=== PATIENT | female | born 1985 | race Caucasian/White ===

== ENCOUNTER 2019-04-11 06:28 | Day surgery (SDC) | payer OTHER, MEDICAID ==
[~2019-04-11] VITALS: Ht 142.2 cm; Wt 63.2 kg
[~2019-04-11 06:28] MED LIST: CETI-193 PO; DIAZ2 PO; DIAZ5 PO; DOCU-275 PO; FLUT16H NASAL; NORE-136 PO; OLAN5TAB2 PO; PSYL0.5210 PO; RINGERS SOLUTION,LACTATED 1,000 ML IV ONE
[2019-04-11] MEDS ORDERED: PROPOFOL 1% 20 ML VIAL IVP ONE (06:29)
[2019-04-11] MEDS ORDERED: LIDOCAINE/PF 2% 5 ML SYRINGE IVP ONE (06:29)
[2019-04-11] MEDS ORDERED: RINGERS SOLUTION,LACTATED 1,000 ML IV ONE (06:30)
[2019-04-11] MEDS ORDERED: SODIUM CHLORIDE 0.9% 100 ML ONE (07:35)
[2019-04-11] MEDS ORDERED: CLINDAMYCIN PHOS 150 MG/ML 4 ML VIAL ONE (07:59)
[2019-04-11] MEDS ORDERED: MIDAZOLAM HCL 5 MG/ML VIAL ONE (09:04)
[2019-04-11] MEDS ORDERED: KETAMINE HCL 50 MG/ML 10 ML VIAL IVP ONE (12:00)
[2019-04-11] MEDS ORDERED: FentaNYL CITRATE-PF 100 MCG/2 ML VIAL IVP ONE (12:00)
[2019-04-11 12:30] LABS: BASOPHILS % (AUTO) 0.5 % (0.0-2.0); EOSINOPHILS % (AUTO) 0.1 % (1.0-6.0); HEMATOCRIT 45.7 % (36-46); HEMOGLOBIN 15.1 g/dL (12.0-16.0); LYMPHOCYTES % (AUTO) 16.8 % (22.0-44.0); MEAN CORPUSCULAR HEMOGLOBIN 31.2 pg (26.0-34.0); MEAN CORPUSCULAR HGB CONC 33.2 G/dL (31.0-37.0); MEAN CORPUSCULAR VOLUME 94 fL (80-100); MONOCYTES # (AUTO) 0.4 K/uL (0.1-1.0); MONOCYTES % (AUTO) 2.9 % (2.0-9.0); NEUTROPHILS # (AUTO) 9.7 K/uL (1.8-7.7); NEUTROPHILS % (AUTO) 79.7 % (40.0-70.0); PLATELET COUNT (AUTO) 284 K/uL (150-450); RED BLOOD CELL COUNT(AUTO) 4.85 MIL/uL (4.00-5.20); RED CELL DISTRIBUTION WIDTH 13.4 % (11.5-14.5)
[2019-04-11 12:40] LABS: ANION GAP 5 mmol/L (8-16); CALCIUM, TOTAL 8.8 mg/dL (8.8-10.5); CARBON DIOXIDE 28 mmol/L (22-29); CHLORIDE 110 mmol/L (98-107); CREATININE 0.85 mg/dL (0.60-1.30); GLOMERULAR FILTR. RATE CALC > 60 mL/min (>60); GLUCOSE,RANDOM 105 mg/dL (70-110); POTASSIUM 4.4 mmol/L (3.5-5.1); SODIUM SERUM 143 mmol/L (136-145); UREA NITROGEN, BLOOD 9 mg/dL (7-18)
[2019-04-11 12:44] LABS: PROTHROMBIN TIME 10.4 SEC (9.4-11.6)
[2019-04-11 12:46] LABS: ALANINE AMINOTRANSFERASE 30 U/L (12-78); ALBUMIN 3.5 g/dL (3.4-5.0); ALKALINE PHOSPHATASE 89 U/L (46-116); ASPARTATE AMINOTRANSFERASE 21 U/L (15-37); BILIRUBIN,TOTAL 0.3 mg/dL (0.1-1.0); TOTAL PROTEIN, SERUM 8.2 g/dL (6.4-8.2)
== END 2019-04-11 13:00 | disposition home or self-care (01) ==
LOC: SURGERY 06:28
PROVIDERS: ATTEND Dentist General Practice
DX: K02.9 Dental caries, unspecified (principal); K05.6 Periodontal disease, unspecified; F41.9 Anxiety disorder, unspecified; Z79.899 Other long term (current) drug therapy; Z88.1 Allergy status to other antibiotic agents; Z88.0 Allergy status to penicillin; Z88.8 Allergy status to other drugs, medicaments and biological substances; Z79.01 Long term (current) use of anticoagulants
CPT/HCPCS: 36415; 41899; 71045; 80053; 85025; 85610; 85730; 93005; J2250; J2704; J3010; J3490 ×3; J7050; J7120

== ENCOUNTER → 2020-05-28 | Day surgery (SDC) | payer OTHER, MEDICAID ==
[~2020-05-28] VITALS: Ht 147.3 cm; Wt 63.6 kg
[~2020-05-28] MED LIST changes: +CLINDAMYCIN PHOS 150 MG/ML 4 ML VIAL ONE; +DEXAMETHASONE SOD PHOS 4 MG/ML VIAL IVP ONE; -DIAZ5 PO; +DIAZ5TAB5 PO; +GLYCOPYRROLATE 0.2 MG/ML VIAL IM ONE; +LIDOCAINE/PF 2% 5 ML SYRINGE IVP ONE; +MIDAZOLAM HCL 5 MG/ML VIAL ONE; +NEOSTIGMINE METHYLSULFATE 1 MG/ML 10 ML VIAL IVP ONE; +ONDANSETRON HCL 4 MG/2 ML VIAL IVP ONE; +PROPOFOL 1% 20 ML VIAL IVP ONE; +ROCURONIUM BROMIDE 10 MG/ML 5 ML VIAL IV ONE; +SODIUM CHLORIDE 0.9% 0 ML ONE; +VANCOMYCIN HCL 1 GM/VIAL ONE
[2020-05-28 07:44] LABS: COVID AG,FIA SOURCE NASOPHARYNGEAL
[2020-05-28 11:28] LABS: BASOPHILS % (AUTO) 0.6 % (0.0-2.0); EOSINOPHILS % (AUTO) 0.1 % (1.0-6.0); HEMATOCRIT 41.3 % (36-46); HEMOGLOBIN 13.9 g/dL (12.0-16.0); LYMPHOCYTES # (AUTO) 1.9 K/uL (1.0-4.8); LYMPHOCYTES % (AUTO) 24.9 % (22.0-44.0); MEAN CORPUSCULAR HEMOGLOBIN 31.6 pg (26.0-34.0); MEAN CORPUSCULAR HGB CONC 33.6 G/dL (31.0-37.0); MEAN CORPUSCULAR VOLUME 94 fL (80-100); MONOCYTES # (AUTO) 0.4 K/uL (0.1-1.0); MONOCYTES % (AUTO) 4.7 % (2.0-9.0); NEUTROPHILS # (AUTO) 5.2 K/uL (1.8-7.7); NEUTROPHILS % (AUTO) 69.7 % (40.0-70.0); PLATELET COUNT (AUTO) 280 K/uL (150-450); RED CELL DISTRIBUTION WIDTH 13.8 % (11.5-14.5)
[2020-05-28 11:38] LABS: ANION GAP 14 mmol/L (8-16); CALCIUM, TOTAL 8.3 mg/dL (8.8-10.5); CARBON DIOXIDE 22 mmol/L (22-29); CHLORIDE 107 mmol/L (98-107); CREATININE 0.82 mg/dL (0.60-1.30); GLOMERULAR FILTR. RATE CALC > 60 mL/min (>60); GLUCOSE,RANDOM 96 mg/dL (70-110); POTASSIUM 3.9 mmol/L (3.5-5.1); SODIUM SERUM 143 mmol/L (136-145); UREA NITROGEN, BLOOD 11 mg/dL (7-18)
[2020-05-28 11:47] LABS: PROTHROMBIN TIME 10.9 SEC (9.4-11.6)
[2020-05-28 11:49] LABS: ALANINE AMINOTRANSFERASE 29 U/L (12-78); ALBUMIN 3.3 g/dL (3.4-5.0); ALKALINE PHOSPHATASE 81 U/L (46-116); ASPARTATE AMINOTRANSFERASE 28 U/L (15-37); BILIRUBIN,TOTAL 0.3 mg/dL (0.1-1.0); HCG,QUANTITATIVE < 1 mIU/mL (0-6); TOTAL PROTEIN, SERUM 7.7 g/dL (6.4-8.2)
== END | disposition home or self-care (01) ==
LOC: SURGERY 06:25
PROVIDERS: ATTEND Dentist General Practice
DX: K02.9 Dental caries, unspecified (principal); K05.30 Chronic periodontitis, unspecified; K03.6 Deposits [accretions] on teeth; F41.9 Anxiety disorder, unspecified; G40.909 Epilepsy, unspecified, not intractable, without status epilepticus; Z88.0 Allergy status to penicillin; Z88.1 Allergy status to other antibiotic agents; Z79.899 Other long term (current) drug therapy; Z98.890 Other specified postprocedural states; F63.9 Impulse disorder, unspecified
CPT/HCPCS: 36415; 41899; 71045; 80053; 84702; 85025; 85610; 85730; 87426; 93005; C9803; J2250; J3370; J3490; J7120; A9575; J1100; J2405; J2704; J7050; S0077

== ENCOUNTER 2022-03-17 06:09 | Day surgery (SDC) | payer OTHER, MEDICAID ==
[~2022-03-17] VITALS: Ht 147.3 cm; Wt 63.6 kg
[~2022-03-17 06:09] MED LIST changes: -CLINDAMYCIN PHOS 150 MG/ML 4 ML VIAL ONE; -DEXAMETHASONE SOD PHOS 4 MG/ML VIAL IVP ONE; -DOCU-275 PO; +DOCU-385 PO; -FLUT16H NASAL; +FLUT16SP NASAL; -GLYCOPYRROLATE 0.2 MG/ML VIAL IM ONE; -LIDOCAINE/PF 2% 5 ML SYRINGE IVP ONE; +METAMUCIL0.52 GM PO; -MIDAZOLAM HCL 5 MG/ML VIAL ONE; -NEOSTIGMINE METHYLSULFATE 1 MG/ML 10 ML VIAL IVP ONE; -OLAN5TAB2 PO; +OLAN5TAB52 PO; -ONDANSETRON HCL 4 MG/2 ML VIAL IVP ONE; -PROPOFOL 1% 20 ML VIAL IVP ONE; -PSYL0.5210 PO; -ROCURONIUM BROMIDE 10 MG/ML 5 ML VIAL IV ONE; -SODIUM CHLORIDE 0.9% 0 ML ONE; -VANCOMYCIN HCL 1 GM/VIAL ONE
[2022-03-17] MEDS ORDERED: ONDANSETRON HCL 4 MG/2 ML VIAL IVP ONE (06:10)
[2022-03-17] MEDS ORDERED: ROCURONIUM BROMIDE 10 MG/ML 5 ML VIAL IVP ONE (06:10)
[2022-03-17] MEDS ORDERED: LIDOCAINE/PF 2% 5 ML VIAL IM ONE (06:10)
[2022-03-17] MEDS ORDERED: PROPOFOL 1% 20 ML VIAL IVP ONE (06:10)
[2022-03-17] MEDS ORDERED: DEXAMETHASONE SOD PHOS 4 MG/ML VIAL IVP ONE (06:10)
[2022-03-17] MEDS ORDERED: ESMOLOL HCL 10 MG/ML 10 ML VIAL IVP ONE (06:10)
[2022-03-17] MEDS ORDERED: METOCLOPRAMIDE HCL 5 MG/ML 2 ML VIAL IVP ONE (06:10)
[2022-03-17 07:13] LABS: COVID AG,FIA SOURCE NASOPHARYNGEAL
[2022-03-17] MEDS ORDERED: CLINDAMYCIN 600 MG/D5% WATER 50 ML IV ONE (08:45)
[2022-03-17] MEDS ORDERED: BACITRACIN 28 GM OINTMENT TP ONE (09:47)
[2022-03-17] MEDS ORDERED: SUGAMMADEX SODIUM 200 MG/2 ML VIAL IVP ONE (09:49)
== END 2022-03-17 11:10 | disposition home or self-care (01) ==
LOC: SURGERY 06:09
PROVIDERS: ATTEND Dentist General Practice
DX: K02.9 Dental caries, unspecified (principal); K05.30 Chronic periodontitis, unspecified; Z88.0 Allergy status to penicillin; Z88.8 Allergy status to other drugs, medicaments and biological substances; Z79.899 Other long term (current) drug therapy; Z20.822 Contact with and (suspected) exposure to COVID-19
CPT/HCPCS: 41899; 71045; 87426; 93005; J2704; J3490 ×4; J1100; J2765; J2405; Q9967; C9803

== ENCOUNTER 2023-07-06 06:09 | Day surgery (SDC) | payer OTHER ==
[~2023-07-06] VITALS: Ht 147.3 cm; Wt 63.1 kg
[~2023-07-06 06:09] MED LIST changes: -CETI-193 PO; +DIAZ-328 PO; -DIAZ2 PO; -DIAZ5TAB5 PO; -FLUT16SP NASAL; -RINGERS SOLUTION,LACTATED 1,000 ML IV ONE
[2023-07-06] MEDS ORDERED: RINGERS SOLUTION,LACTATED 1,000 ML IV ONE ×2 (06:22→06:30)
[2023-07-06] MEDS ORDERED: CLINDAMYCIN 600 MG/D5% WATER 50 ML IV ONE (08:00)
[2023-07-06] MEDS ORDERED: CETI-450 PO (08:26)
[2023-07-06] MEDS ORDERED: MIDAZOLAM HCL 5 MG/ML VIAL ONE ×2 (08:56→09:22)
[2023-07-06] MEDS ORDERED: KETAMINE HCL 50 MG/ML 10 ML VIAL ONE (10:30)
[2023-07-06 11:01] LABS: EOSINOPHILS % (AUTO) 0.5 % (1.0-6.0); HEMATOCRIT 41.3 % (36-46); HEMOGLOBIN 14.2 g/dL (12.0-16.0); LYMPHOCYTES # (AUTO) 3.7 K/uL (1.0-4.8); LYMPHOCYTES % (AUTO) 37.4 % (22.0-44.0); MEAN CORPUSCULAR HEMOGLOBIN 32.1 pg (26.0-34.0); MEAN CORPUSCULAR HGB CONC 34.3 G/dL (31.0-37.0); MEAN CORPUSCULAR VOLUME 93 fL (80-100); MONOCYTES # (AUTO) 0.6 K/uL (0.1-1.0); MONOCYTES % (AUTO) 6.1 % (2.0-9.0); NEUTROPHILS # (AUTO) 5.4 K/uL (1.8-7.7); PLATELET COUNT (AUTO) 400 K/uL (150-450); RED BLOOD CELL COUNT(AUTO) 4.42 MIL/uL (4.00-5.20); RED CELL DISTRIBUTION WIDTH 13.2 % (11.5-14.5); WHITE BLOOD COUNT (AUTO) 9.9 K/uL (4.5-11.0)
[2023-07-06] MEDS ORDERED: ONDANSETRON HCL 4 MG/2 ML VIAL ONE (12:00)
[2023-07-06] MEDS ORDERED: SUGAMMADEX SODIUM 200 MG/2 ML VIAL IVP ONE (12:00)
[2023-07-06] MEDS ORDERED: LIDOCAINE/PF 2% 5 ML SYRINGE IVP ONE (12:00)
[2023-07-06] MEDS ORDERED: PROPOFOL 1% 20 ML VIAL IVP ONE (12:00)
[2023-07-06] MEDS ORDERED: ROCURONIUM BROMIDE 10 MG/ML 5 ML VIAL ONE (12:00)
[2023-07-06] MEDS ORDERED: DEXAMETHASONE SOD PHOS 4 MG/ML VIAL ONE (12:00)
[2023-07-06] MEDS ORDERED: OXYGEN THERAPY IH SCH (20:00)
== END 2023-07-06 14:00 | disposition home or self-care (01) ==
LOC: SURGERY 06:09
PROVIDERS: ATTEND Dentist General Practice
DX: K02.9 Dental caries, unspecified (principal); K05.30 Chronic periodontitis, unspecified; K03.6 Deposits [accretions] on teeth; F41.9 Anxiety disorder, unspecified; K59.00 Constipation, unspecified; I10 Essential (primary) hypertension; Z98.890 Other specified postprocedural states; Z79.899 Other long term (current) drug therapy
CPT/HCPCS: 41899; 71045; 85025; 36415; 93005; J2704; J3490 ×4; J1100; J2405; J2250; Q9967; J7120

== ENCOUNTER 2024-12-19 05:56 | Day surgery (SDC) | payer OTHER ==
[~2024-12-19] VITALS: Ht 147.3 cm; Wt 63.6 kg
[~2024-12-19 05:56] MED LIST changes: +CETI10TA77 PO
[2024-12-19] MEDS ORDERED: CLINDAMYCIN 600 MG/D5% WATER 50 ML IV ONE (08:00)
[2024-12-19 09:07] LABS: PLATELET COUNT (AUTO) 296 K/uL (150-450); RED BLOOD CELL COUNT(AUTO) 4.54 MIL/uL (4.00-5.20); RED CELL DISTRIBUTION WIDTH 13.5 % (11.5-14.5); WHITE BLOOD COUNT (AUTO) 7.2 K/uL (4.5-11.0)
[2024-12-19 09:32] LABS: CALCIUM, TOTAL 8.1 mg/dL (8.8-10.5); CREATININE 0.71 mg/dL (0.60-1.30); GLOMERULAR FILTR. RATE CALC > 60 mL/min (>60); GLUCOSE,RANDOM 132 mg/dL (70-110); SODIUM SERUM 142 mmol/L (136-145); UREA NITROGEN, BLOOD 10 mg/dL (7-18)
[2024-12-19 09:44] LABS: ASPARTATE AMINOTRANSFERASE 24 U/L (15-37); CHOL/HDL RATIO 3.1 (3.9-5.7); LDL CHOL (CALC.) 71 mg/dL (0-130); TOTAL PROTEIN, SERUM 7.4 g/dL (6.4-8.2)
[2024-12-19] MEDS: RINGERS SOLUTION,LACTATED 1,000 ML IV ONE (10:06)
[2024-12-19] MEDS ORDERED: ROCURONIUM BROMIDE 10 MG/ML 5 ML VIAL ONE (12:42)
[2024-12-19] MEDS ORDERED: LIDOCAINE/PF 2% 5 ML SYRINGE IVP ONE (12:42)
[2024-12-19] MEDS ORDERED: SUGAMMADEX SODIUM 200 MG/2 ML VIAL IVP ONE (12:42)
[2024-12-19] MEDS ORDERED: PROPOFOL 1% 20 ML VIAL IVP ONE (12:42)
[2024-12-19] MEDS ORDERED: DEXAMETHASONE SOD PHOS 4 MG/ML VIAL ONE (12:42)
[2024-12-19] MEDS ORDERED: ONDANSETRON HCL 4 MG/2 ML VIAL ONE (12:42)
== END 2024-12-19 11:40 | disposition home or self-care (01) ==
LOC: SURGERY 05:56
PROVIDERS: ATTEND Dentist General Practice
DX: K05.20 Aggressive periodontitis, unspecified (principal); K02.9 Dental caries, unspecified; K03.6 Deposits [accretions] on teeth; K21.9 Gastro-esophageal reflux disease without esophagitis; Z98.890 Other specified postprocedural states; Z88.0 Allergy status to penicillin; Z88.1 Allergy status to other antibiotic agents; Z88.8 Allergy status to other drugs, medicaments and biological substances
CPT/HCPCS: 41899; 71045; 80061; 80053; 83036; 84443; 84703; 85025; 85610; 85730; 36415; 93005; J2704; J3490 ×4; J1100; J2405